=== PATIENT | male | born 2000 | race Two or more races ===

== ENCOUNTER 2022-01-15 15:39 | Emergency (ER) | payer MEDICAID ==
[~2022-01-15] VITALS: Ht 170.2 cm; Wt 66.0 kg
[2022-01-15] MEDS ORDERED: LIDOCAINE HCL 1% 20ML VIAL (Pyxis) INJ INFIL ONE (22:15)
[2022-01-15] MEDS ORDERED: IBUPROFEN 600MG TABLET PO ONE (22:15)
[2022-01-15] MEDS ORDERED: BACITRACIN ZINC OINT UDPKT TOP ONE (22:15)
[2022-01-15] MEDS ORDERED: LIDOCAINE HCL/PF 1% 10 MG/ML 5ML VIAL INFIL ONE (22:15)
[2022-01-15] MEDS ORDERED: CEFTRIAXONE SODIUM 1 G/VIAL IM ONE (22:15)
[2022-01-15 22:42] VITALS: BP 129/76
[2022-01-15] MEDS ORDERED: SULF1TAB48 MT (23:58)
[2022-01-15] MEDS ORDERED: IBUP-2028 MT (23:58)
[2022-01-15] MEDS ORDERED: CEPH500T MT (23:59)
== END 2022-01-16 00:17 | disposition home or self-care (01) ==
LOC: ER 15:39
DX: L02.511 Cutaneous abscess of right hand (principal); Z79.899 Other long term (current) drug therapy
CPT/HCPCS: 10060; 96372; 99283; J0696; J3490